=== PATIENT | female | born 1955 | race Caucasian/White ===

== ENCOUNTER 2021-06-09 09:04 | Outpatient (CLI) | payer MEDICARE, BC ==
[2021-06-09 10:12] LABS: Bilirubin Neg (Negative); Blood, Urine Negative (Negative); Clarity Clear (Clear); Glucose, Urine (Dipstick) Normal (Negative); Ketone, Urine Negative (Negative); Leukocyte 25 (Negative); Nitrite Negative (Negative); Protein, Urine (Dipstick) Negative (Neg-Trace); Urobilinogen Normal mg/dL (Less than 2); pH, Urine 6.5 (5.0-9.0)
[2021-06-09 10:21] LABS: Hemoglobin 13.6 g/dL (12.0-15.5); Mean Corpuscular HGB CONC 33.1 g/dL (32.0-36.0); Mean Corpuscular Hemoglobin 29.3 pg (27.0-33.0); Mean Corpuscular Volume 88.6 fl (81.6-98.3); Mean Platelet Volume 9.7 fl (7.4-10.4); Platelet Count 347 10x3/uL (150-450); RBC Distribution Width 13.3 % (11.5-14.5); Red Blood Cell (RBC) Count 4.64 10x6/uL (3.90-5.03); White Blood Cell (WBC) Count 7.8 10x3/uL (3.5-10.5)
[2021-06-09 10:31] LABS: Bacteria/HPF Rare-Few HPF (None Seen); RBC/HPF 0-3 HPF (0-3); Squamous Epithelial 0-3 HPF (0-3); WBC/HPF 0-3 HPF (0-3)
[2021-06-09 10:41] LABS: INR-International Normal Ratio 0.9; PTT 27.3 sec (22.0-33.0)
[2021-06-09 10:42] LABS: Anion Gap 16 mmol/L (10-20); BUN (Urea Nitrogen) 24 mg/dL (9.8-20.1); Calc. Creatinine Clearance 0 mL/min (70-130); Carbon Dioxide 25 mmol/L (23-31); Chloride 103 mmol/L (98-107); Glucose 98 mg/dL (80-115); Potassium 4.6 mmol/L (3.5-5.1); Sodium 139 mmol/L (136-145)
[2021-06-10 00:04] LABS: SARS-CoV-2 PCR by NAA Not Detected (NotDetected)
== END 2021-06-09 09:05 | disposition home or self-care (01) ==
LOC: LABBT 09:04
PROVIDERS: ATTEND Urology
DX: Z01.818 Encounter for other preprocedural examination (principal); N13.30 Unspecified hydronephrosis; Z20.822 Contact with and (suspected) exposure to COVID-19
CPT/HCPCS: 80048; 81001; 85027; 85610; 85730; 87086; 93005; U0003; U0005; 93010

== ENCOUNTER 2021-06-12 08:25 | Day surgery (SDC) | payer MEDICARE, BC ==
[2021-06-09 12:02] VITALS: BMI 26.6
[2021-06-12] MEDS ORDERED: Iothalamate Meglumine 60% 50 ML VIAL FS ONE (12:51)
[2021-06-12] MEDS ORDERED: Fentanyl 100 MCG/2 ML VIAL ONE (13:11)
[2021-06-12] MEDS ORDERED: PHENYLEPHRINE-NS 100 MCG/ML 10 ML SYRINGE ONE (13:11)
[2021-06-12] MEDS ORDERED: Levofloxacin 500 mg/D5W 100 ml Premix Bag ONE (13:13)
[2021-06-12] MEDS ORDERED: Ketorolac Tromethamine 30 MG/ML VIAL ONE (13:19)
[2021-06-12] MEDS ORDERED: Dexamethasone 20 MG/5 ML VIAL ONE (13:19)
[2021-06-12] MEDS ORDERED: Ondansetron PF 4 MG/2 ML Vial ONE (13:19)
[2021-06-12] MEDS ORDERED: PROPOFOL 200 MG/20 ML VIAL ONE (13:19)
[2021-06-12] MEDS ORDERED: Lidocaine 1% PF 5 ML VIAL ONE (13:19)
== END 2021-06-12 16:15 | disposition home or self-care (01) ==
LOC: SDC 08:25
PROVIDERS: ATTEND Urology
PROC: 0T778DZ Dilation of Left Ureter with Intraluminal Device, Via Natural or Artificial Opening Endoscopic (ICD-10-PCS; principal; 2021-06-12)
DX: N13.1 Hydronephrosis with ureteral stricture, not elsewhere classified (principal); I10 Essential (primary) hypertension; M19.90 Unspecified osteoarthritis, unspecified site; M81.0 Age-related osteoporosis without current pathological fracture; E78.00 Pure hypercholesterolemia, unspecified; Z87.891 Personal history of nicotine dependence; Z79.899 Other long term (current) drug therapy
CPT/HCPCS: 52332; 76000; Q9961; C2617; J1100; J1885; J1956; J2405; J2704; J3010

== ENCOUNTER 2021-12-15 10:31 | Outpatient (CLI) | payer MEDICARE, BC | END 2021-12-15 10:32 | disposition home or self-care (01) | LOC: LABBT 10:31 | PROVIDERS: ATTEND Urology | DX: Z01.818 Encounter for other preprocedural examination (principal); N13.1 Hydronephrosis with ureteral stricture, not elsewhere classified | CPT/HCPCS: 71046; 93005; 93010 ==

== ENCOUNTER 2021-12-18 06:04 | Observation (INO) | payer MEDICARE, BC ==
[2021-12-15 11:46] LABS: Bilirubin Neg (Negative); Blood, Urine 10 (Negative); Clarity Clear (Clear); Glucose, Urine (Dipstick) Normal (Negative); Ketone, Urine Negative (Negative); Leukocyte Negative (Negative); Nitrite Negative (Negative); Protein, Urine (Dipstick) Negative (Neg-Trace); Urobilinogen Normal mg/dL (Less than 2)
[2021-12-15 11:55] LABS: Bacteria/HPF None Seen HPF (None Seen); RBC/HPF 0-3 HPF (0-3); Squamous Epithelial 0-3 HPF (0-3); WBC/HPF 0-3 HPF (0-3)
[2021-12-15 12:01] LABS: Hemoglobin 14.3 g/dL (12.0-15.5); Mean Corpuscular HGB CONC 33.6 g/dL (32.0-36.0); Mean Corpuscular Hemoglobin 29.1 pg (27.0-33.0); Mean Corpuscular Volume 86.8 fl (81.6-98.3); Mean Platelet Volume 9.8 fl (7.4-10.4); Platelet Count 337 10x3/uL (150-450); RBC Distribution Width 13.2 % (11.5-14.5); Red Blood Cell (RBC) Count 4.91 10x6/uL (3.90-5.03); White Blood Cell (WBC) Count 8.3 10x3/uL (3.5-10.5)
[2021-12-15 12:13] LABS: INR-International Normal Ratio 0.9; PTT 27.1 sec (22.0-33.0); Prothrombin Time 9.8 sec (9.5-12.1)
[2021-12-15 12:16] LABS: Anion Gap 14 mmol/L (10-20); BUN (Urea Nitrogen) 20 mg/dL (9.8-20.1); Calc. Creatinine Clearance 0 mL/min (70-130); Calcium 10.1 mg/dL (7.8-10.44); Carbon Dioxide 26 mmol/L (23-31); Chloride 100 mmol/L (98-107); Estimated GFR 45; Glucose 93 mg/dL (80-115); Potassium 4.6 mmol/L (3.5-5.1); Sodium 135 mmol/L (136-145)
[2021-12-16 10:05] VITALS: BMI 26.6
[2021-12-18] MEDS ORDERED: fentaNYL Citrate/PF 100 MCG/2 ML SYRINGE ONE (06:17)
[2021-12-18] MEDS ORDERED: CEFAZOLIN 2 GM VIAL ONE (06:57)
[2021-12-18] MEDS ORDERED: Sodium Chloride 0.9% 100 ML ONE (06:57)
[2021-12-18] MEDS ORDERED: CEFAZOLIN 2 GM in Sodium Chloride 0.9% 100 ML IVPB SCH (07:00)
[2021-12-18] MEDS ORDERED: Gentamicin Sulfate 80 MG in Premix Bag 1 BAG IVPB SCH (07:00)
[2021-12-18] MEDS ORDERED: Midazolam HCl 2 mg/2 ml Vial ONE (07:31)
[2021-12-18] MEDS ORDERED: Dexamethasone 20 MG/5 ML VIAL ONE (07:47)
[2021-12-18] MEDS ORDERED: Phenylephrine 10 MG/ML VIAL ONE (07:47)
[2021-12-18] MEDS ORDERED: Rocuronium Bromide 10 MG/ML (10ML VIAL) ONE (07:47)
[2021-12-18] MEDS ORDERED: Ondansetron PF 4 MG/2 ML Vial ONE (07:47)
[2021-12-18] MEDS ORDERED: PROPOFOL 200 MG/20 ML VIAL ONE (07:47)
[2021-12-18] MEDS ORDERED: NEOSTIGMINE 3 MG/3 ML SYR 3 MG/3 ML SYRINGE ONE (07:47)
[2021-12-18] MEDS ORDERED: Glycopyrrolate 0.2 MG/ML 5 ML SYRINGE ONE (07:47)
[2021-12-18] MEDS ORDERED: Bupivacaine HCl 0.5%/Epinephrine 1:200,000/PF 30 ml Vial ONE (08:28)
[2021-12-18] MEDS ORDERED: Bupivacaine 0.25% HCL 30 ML VIAL ONE ×3 (10:10→11:20)
[2021-12-18] MEDS ORDERED: Mag-Al 1200 mg/1200 mg/30 ML UDCUP PO PRN (11:01)
[2021-12-18] MEDS ORDERED: Oxybutynin 5 MG TAB PO PRN (11:01)
[2021-12-18] MEDS ORDERED: Bisacodyl 10 MG SUPP PR PRN (11:01)
[2021-12-18] MEDS ORDERED: hydrALAZINE 20 MG/ML VIAL SLOW IVP PRN (11:01)
[2021-12-18] MEDS ORDERED: Ondansetron PF 4 MG/2 ML Vial IVP PRN (11:01)
[2021-12-18] MEDS ORDERED: diphenhydrAMINE 25 MG CAP PO PRN (11:01)
[2021-12-18] MEDS ORDERED: oxyCODONE 5 MG TAB PO PRN ×2 (11:05)
[2021-12-18] MEDS ORDERED: Fentanyl 100 MCG/2 ML VIAL SLOW IVP PRN (11:05)
[2021-12-18] MEDS ORDERED: Fentanyl 100 MCG/2 ML VIAL ONE ×2 (12:06→12:27)
[2021-12-18] MEDS ORDERED: cefOXitin 1.5 GM in Sodium Chloride 0.9% 100 ML IVPB SCH (14:00)
[2021-12-18] MEDS: Ketorolac Tromethamine 30 MG/ML VIAL IVP SCH ×2 (15:04→18:39)
[2021-12-18] MEDS: Sodium Chloride 0.9% 1,000 ML IV SCH (15:05)
[2021-12-18] MEDS: Acetaminophen 500 MG TAB PO SCH ×3 (17:55→23:32)
[2021-12-18] MEDS: traMADol HCl 50 MG TAB PO SCH ×3 (17:55→23:33)
[2021-12-18] MEDS: Losartan 25 MG TAB PO SCH (20:49)
[2021-12-18] MEDS: Docusate 100 MG CAP PO SCH (20:55)
[2021-12-18] MEDS: cefOXitin 1.5 GM in Sodium Chloride 0.9% 100 ML IVPB SCH (20:57)
[2021-12-18] MEDS ORDERED: Famotidine/PF 20 mg/2ml Vial SLOW IVP SCH (21:00)
[2021-12-19] MEDS: cefOXitin 1.5 GM in Sodium Chloride 0.9% 100 ML IVPB SCH ×2 (03:04→12:13)
[2021-12-19] MEDS: Sodium Chloride 0.9% 1,000 ML IV SCH (03:04)
[2021-12-19] MEDS: Ketorolac Tromethamine 30 MG/ML VIAL IVP SCH (03:05)
[2021-12-19 05:44] LABS: #Lymphocytes 2.5 thou/uL (1.20-3.40); #Neutrophils 8.3 thou/uL (1.40-6.50); %Basophils 0.1 % (0.0-1.0); %Eosinophils 0.2 % (0.0-10.0); %Lymphocytes 21.3 % (21.0-51.0); %Monocytes 8.3 % (0.0-10.0); %Neutrophils 70.1 % (42.0-75.0); Hemoglobin 11.7 g/dL (12.0-16.0); Mean Corpuscular HGB CONC 32.3 g/dL (32.0-36.0); Mean Corpuscular Hemoglobin 30.2 pg (27.0-31.0); Mean Corpuscular Volume 93.5 fL (78.0-98.0); Mean Platelet Volume 7.3 fL (7.4-10.4); Platelet Count 249 thou/uL (130-400); RBC Distribution Width 11.9 % (11.5-14.5); Red Blood Cell (RBC) Count 3.88 mill/uL (4.20-5.40); White Blood Cell (WBC) Count 11.8 thou/uL (4.8-10.8)
[2021-12-19 06:06] LABS: Anion Gap 11 mmol/L (10-20); BUN (Urea Nitrogen) 15 mg/dL (9.8-20.1); Calc. Creatinine Clearance 42 mL/min (70-130); Calcium 8.3 mg/dL (7.8-10.44); Carbon Dioxide 24 mmol/L (23-31); Chloride 102 mmol/L (98-107); Estimated GFR 40; Glucose 100 mg/dL (80-115); Potassium 4.8 mmol/L (3.5-5.1); Sodium 132 mmol/L (136-145)
[2021-12-19] MEDS: Acetaminophen 500 MG TAB PO SCH ×3 (06:38→18:43)
[2021-12-19] MEDS: traMADol HCl 50 MG TAB PO SCH ×3 (06:38→18:43)
[2021-12-19] MEDS: Docusate 100 MG CAP PO SCH ×2 (08:46→21:02)
[2021-12-19] MEDS ORDERED: Enoxaparin Sodium 40 MG/0.4 ML SYRINGE SC SCH (09:00)
[2021-12-19] MEDS: Losartan 25 MG TAB PO SCH (18:44)
[2021-12-19] MEDS: Famotidine/PF 20 mg/2ml Vial SLOW IVP SCH (21:02)
[2021-12-20] MEDS: Acetaminophen 500 MG TAB PO SCH ×5 (00:33→23:47)
[2021-12-20] MEDS: traMADol HCl 50 MG TAB PO SCH ×4 (00:34→18:34)
[2021-12-20] MEDS: Docusate 100 MG CAP PO SCH ×2 (08:23→20:12)
[2021-12-20] MEDS ORDERED: Ondansetron ODT 4 MG TAB PO PRN (11:32)
[2021-12-20] MEDS: Dextrose 5 %-0.45 % NaCl 1,000 ML IV SCH (11:45)
[2021-12-20] MEDS: Losartan 25 MG TAB PO SCH ×2 (20:12→20:16)
[2021-12-20] MEDS: Famotidine/PF 20 mg/2ml Vial SLOW IVP SCH (20:12)
[2021-12-20 23:50] VITALS: TEMP 98.2
[2021-12-21] MEDS: Dextrose 5 %-0.45 % NaCl 1,000 ML IV SCH (00:43)
[2021-12-21] MEDS: traMADol HCl 50 MG TAB PO SCH ×2 (01:01→06:21)
[2021-12-21] MEDS: Acetaminophen 500 MG TAB PO SCH (05:56)
[2021-12-21] MEDS: Docusate 100 MG CAP PO SCH (08:59)
[2021-12-21 11:07] VITALS: BP 180/92
== END 2021-12-21 12:24 | disposition home or self-care (01) ==
LOC: SDC 06:04 → EDSTATUS 10:30 → SURG A 11:08
PROVIDERS: ADMIT Urology; ATTEND Urology
PROC: 0TQ44ZZ Repair Left Kidney Pelvis, Percutaneous Endoscopic Approach (ICD-10-PCS; principal; 2021-12-18)
PROC: 8E0W4CZ Robotic Assisted Procedure of Trunk Region, Percutaneous Endoscopic Approach (ICD-10-PCS; 2021-12-18)
DX: N13.1 Hydronephrosis with ureteral stricture, not elsewhere classified (principal); M81.0 Age-related osteoporosis without current pathological fracture; I10 Essential (primary) hypertension; E78.00 Pure hypercholesterolemia, unspecified; Z87.891 Personal history of nicotine dependence; Z79.899 Other long term (current) drug therapy; Z20.822 Contact with and (suspected) exposure to COVID-19
CPT/HCPCS: 50544; 74018; 80048 ×2; 81001; 82570; 85025; 85027; 85610; 85730; 86850; 86900; 86901; 87086; 87811; C1713; C1889; C2617; 36415; 88305; J0360; J0690; J0694; J1100; J1580; J1650; J1885; J2250; J2370; J2405; J2704; J3010; J3490; J7042; J7050; S0020; S0028